=== PATIENT | female | born 1975 | race Caucasian/White ===

== ENCOUNTER → 2019-08-23 | Outpatient (CLI) | payer BC ==
--- NOTE | 2019-09-16 07:48 | MM ---
Reason for exam: clinical finding. Last mammogram was performed 1 year and 4 months ago. History: Patient is postmenopausal and is nulliparous. Took estrogen for 3 years beginning at age 39. Took progesterone for 15 years. Taking other hormone for 10 years. Indicated problem(s): lump or thickening in the left breast. Physical Findings: Nurse Summary: 1cm nodule in the left breast at 1 o'clock (nurse marycruz). MG 3D Diag Mammo W/Cad [facility] Bilateral CC, MLO, and XCCL view(s) were taken. Prior study comparison: April 09, 2018, mammogram, performed at [place]. March 12, 2016, mammogram, performed at [place]. The breast tissue is heterogeneously dense. This may lower the sensitivity of mammography. There is no discrete abnormality including area of concern marked by BB left 1 o'clock. No significant new findings when compared with previous films. These results were verbally communicated with the patient on 09/12/19. ASSESSMENT: Benign, BI-RAD 2 RECOMMENDATION: Routine screening mammogram of both breasts in 1 year.
--- NOTE | 2019-09-16 07:51 | USB ---
Reason for exam: clinical finding. History: Patient is postmenopausal and is nulliparous. Took estrogen for 3 years beginning at age 39. Took progesterone for 15 years. Taking other hormone for 10 years. US Breast Limited LT Left limited breast ultrasound including focal area of concern, retroareolar and axilla demonstrates a 0.7 x 0.4 x 0.7cm cystic lesion at 1 o'clock. These results were verbally communicated with the patient on 09/12/19. ASSESSMENT: Benign, BI-RAD 2 RECOMMENDATION: Routine screening mammogram of both breasts in 1 year. Manage patient on a clinical basis.
== END | disposition home or self-care (01) ==
LOC: RADMAMWWP 08:21
PROVIDERS: ATTEND Obstetrics & Gynecology
DX: N63.0 Unspecified lump in unspecified breast (principal)
CPT/HCPCS: 77062; 77066

== ENCOUNTER → 2020-09-24 | Outpatient (CLI) | payer BC ==
--- NOTE | 2020-09-25 09:40 | MM ---
Reason for exam: screening (asymptomatic). Last mammogram was performed 1 year and 1 month ago. History: Patient is postmenopausal and is nulliparous. Took estrogen for 3 years beginning at age 39. Took progesterone for 15 years. Taking other hormone for 10 years. Physical Findings: A clinical breast exam by your physician is recommended on an annual basis and results should be correlated with mammographic findings. MG Screening Mammo w CAD Bilateral CC and MLO view(s) were taken. Prior study comparison: August 23, 2019, bilateral MG 3d diag mammo w/cad REAGAN. April 09, 2018, mammogram, performed at [place]. The breast tissue is heterogeneously dense. This may lower the sensitivity of mammography. There is chronic nodularity bilaterally. There is no dominant lesion. No significant changes when compared with prior studies. ASSESSMENT: Benign, BI-RAD 2 RECOMMENDATION: Routine screening mammogram of both breasts in 1 year.
== END | disposition home or self-care (01) ==
LOC: RADMAMWWP 08:01
PROVIDERS: ATTEND Obstetrics & Gynecology
DX: Z12.31 Encounter for screening mammogram for malignant neoplasm of breast (principal); Z78.0 Asymptomatic menopausal state
CPT/HCPCS: 77067

== ENCOUNTER → 2021-12-13 | Outpatient (CLI) | payer BC ==
--- NOTE | 2021-12-16 08:19 | MM ---
Reason for Exam: Screening (asymptomatic). Last mammogram was performed 1 year(s) and 3 month(s) ago. Patient History: Menarche at age 8. Patient has no children. Postmenopausal. Estrogen for 3 years from age 39 until age 42. Patient used Progesterone for 15 years. Risk Values: Brook 5 year model risk: 1.1%. NCI Lifetime model risk: 11.1%. Prior Study Comparison: 04/09/2018 Screening Mammogram, [place]. 08/23/2019 Bilateral Diagnostic Mammogram, [facility]. 09/24/2020 Bilateral Screening Mammogram, [facility]. Tissue Density: The breast tissue is heterogeneously dense. This may lower the sensitivity of mammography. Findings: Analyzed By CAD. There is no suspicious group of microcalcifications or new suspicious mass in either breast. Chronic nodularity bilaterally. No significant change from prior exams. Overall Assessment: Benign, BI-RAD 2 Management: Screening Mammogram of both breasts in 1 year. A clinical breast exam by your physician is recommended on an annual basis and results should be correlated with mammographic findings. Electronically signed and approved by: Jamil Hooker D.O.
== END | disposition home or self-care (01) ==
LOC: RADMAMWWP 11:37
PROVIDERS: ATTEND Obstetrics & Gynecology
DX: Z12.31 Encounter for screening mammogram for malignant neoplasm of breast (principal); Z78.0 Asymptomatic menopausal state
CPT/HCPCS: 77067

== ENCOUNTER → 2023-01-08 | Outpatient (CLI) | payer BC ==
--- NOTE | 2023-01-08 19:51 | BD ---
EXAMINATION TYPE: Axial Bone Density DATE OF EXAM: 01/08/2023 CLINICAL HISTORY: 47 years old Female. ICD-10 CODE: N95.1 MENOPAUSAL AND FEMALE CLIMA Height: 63.4 Weight: 174 FRAX RISK QUESTIONS: Family History (Parent hip fracture): yes Glucocorticoids (More than 3mos): seasonal with allergies (Ex: prednisone, prednisolone, methylprednisolone, dexamethasone, and hydrocortisone). Secondary Osteoporosis: yes 3. Menopause before 45: yes RISK FACTORS HISTORY OF: Family History of Osteoporosis: yes, her mother and her sister, mother with fx Postmenopausal woman: yes, at age 33 yrs old naturally If Premenopausal, do you have irregular periods: Take estrogen and/or progesterone medications: yes, for about 15 yrs, and fertility drugs as well, th en additional 3 yrs Hyperparathyroidism: no Adrenal Insufficiency: no MEDICATIONS: Prednisone or other steroids: yes, for seasonal allergies, Additional Medications: bp meds, reflux meds, statin for cholesterol, vit d Additional History: hypertension, reflux, cholesterol, EXAM MEASUREMENTS: Bone mineral densitometry was performed using the [employer] System. Bone mineral density as measured about the Lumbar spine is: ----- L1-L4(G/cm2): 1.231 T Score Values are as follows: ----- L1: -0.3 ----- L2: 0.0 ----- L3: 0.7 ----- L4: 1.0 ----- L1-L4: 0.4 Z Score Values are as follows: ----- L1: -0.4 ----- L2: -0.2 ----- L3: 0.6 ----- L4: 0.9 ----- L1-L4: 0.3 Bone mineral density is her first dexa study, baseline. Bone mineral density about the R hip (g/cm2): 1.167 Bone mineral density about the L hip (g/cm2): 1.187 T Score values are as follows: -----R Neck: -0.1 -----L Neck: 0.0 -----R Total: 1.3 -----L Total: 1.4 Z Score values are as follows: -----R Neck: 0.4 -----L Neck: 0.5 -----R Total: 1.4 -----L Total: 1.5 Bone mineral density is a baseline study today. FRAX%s: The graph provided illustrates a 10.7% chance for a major osteoporotic fx and a 0.1% chance f or the hips probability for fx in 10 years time. IMPRESSION: Normal (Values between +1 and -1 indicate normal bone mass). Consider repeating this study in 5 year s or sooner if there is some new clinical indication. NOTE: T-SCORE=SD OF THE YOUNG ADULT MEAN.
--- NOTE | 2023-01-09 09:05 | MM ---
Reason for Exam: Screening (asymptomatic). Last mammogram was performed 1 year(s) and 1 month(s) ago. Patient History: Menarche at age 8. Patient has no children. Postmenopausal. Estrogen for 3 years from age 39 until age 42. Patient used Progesterone for 15 years. Risk Values: Brook 5 year model risk: 1.1%. NCI Lifetime model risk: 11.0%. Prior Study Comparison: 08/23/2019 Bilateral Diagnostic Mammogram, [facility]. 09/24/2020 Bilateral Screening Mammogram, [facility]. 12/13/2021 Bilateral MG screening mammo w CAD, [facility]. Tissue Density: The breast tissue is heterogeneously dense. This may lower the sensitivity of mammography. Findings: Analyzed By CAD. There is no suspicious group of microcalcifications or new suspicious mass. Overall Assessment: Negative, BI-RAD 1 Management: Screening Mammogram of both breasts in [address] [facility] will attempt to contact patient to return for supplemental views and ultrasound if indicated. Patient should continue monthly self-breast exams. A clinical breast exam by your physician is recommended on an annual basis. This exam should not preclude additional follow-up of suspicious palpable abnormalities. Note on Brook scores and lifetime risk: 1. A Brook score greater than 3% is considered moderate risk. If this is the case, consider specialist referral to assess eligibility for a risk reducing agent. 2. If overall lifetime risk for the development of breast cancer is 20% or higher, the patient may qualify for future screening with alternating mammogram and breast MRI. Electronically signed and approved by: Tomas Marie DO
== END | disposition home or self-care (01) ==
LOC: RADMAMWWP 10:15
PROVIDERS: ATTEND Obstetrics & Gynecology
DX: Z12.31 Encounter for screening mammogram for malignant neoplasm of breast (principal); Z78.0 Asymptomatic menopausal state
CPT/HCPCS: 77063; 77067; 77080